=== PATIENT | male | born 1955 | race Caucasian/White ===

== ENCOUNTER → 2017-11-06 | Outpatient (CLI) | payer BC ==
--- NOTE | 2017-11-07 06:28 | PAP/PSG TECHNICIAN REPORT ---
[facility] Stroke Program Coordinator Polysomnogram Report Study name: None Report date: 11/07/2017 Study date: 11/06/2017 Referring Physician: DEJA Burns Name: SANTOS GREENE Interpreting Physician: Ramy Newell M.D. Date of : 1955 Stroke Program Coordinator: Augustin Valdivia RPSGT. Sex: Male Age: 62 StudyType: PSG Weight: 183 lbs Height: 62 years, Height 5' 11" BMI: 25.52 Medications: DULERA, IMITREX, PROAIR HFA, SINGULARI 10 MG, NASONEX 50 MCG/ACT, BERTRAND 180 MG, MELOXICAM 15 MG, ILTRAM 50 MG, ATIVAN 1 MG, ASPIRIN 81 MG Patient History PATIENT HAS HISTORY OF EXCESSIVE DAYTIME SLEEPINESS, FATIGUE, LOW ENERGY AND SNORING. ALSO HAS HISTORY OF DIFFICULTY MAINTAINING SLEEP. HE RECENTLY HAD A HOME STUDY DONE BUT WAS INCONCLUSIVE. HE IS HERE TODAY FOR AN EVALUATION FOR KEY. ESS = 8 RM 8 Parameters Monitored NPSG: E1-M2, E2-M1, Fp1-M2, Fp2-M1, F3-M2, F4-M2, F4-M1, C3-M2, C4-M2, C4-M1, O1-M2, O2-M2, O2-M1, T3-M2, T4-M1, P3-M2, P4-M1, CHIN1, CHIN2, HR, EKG, Legs, PFLOW, SNOR, FLOW, CFLOW, Tidal Volume, THOR, ABDO, SpO2, PLTH, CPRESS, ETCO2 Wave, ETCO2, pH Sleep Architecture Sleep Stages Time at Lights Off 9:53:06 PM STAGES Time (min.) TST (%) Time at Lights On 5:25:06 AM Wake 72.0 -- Total Recording Time (TRT) 452.50 min. N1 22.5 6 Total Sleep Period (TSP) 418.0 min. N2 225.5 59 Total Sleep Time (TST) 380.0min. N3 58.5 15 Awake Time 72.0 min. REM 73.5 19 Wake after Sleep Onset 38.0 min. Sleep Efficiency (SE) 84 % Sleep Onset Latency (SHANIQUA) 34.0 min. Number of Stage 1 Shifts None Awakenings 26 Stage Changes 111 Number of REM periods 3 REM 73.5 19 REM Latency 111.0 min. NREM 306.5 81 Body Position Analysis Supine Right Left Side Prone Vertical Total Sleep Time (min.) 60.6 184.6 173.4 357.97 0.0 0.0 Total Sleep Time (%) 6% 49% 46% 94 0% N/A% Total Sleep Time REM (min.) 0.0 27.5 46.0 None 0.0 0.0 Total Sleep Time NREM (min.) 22.0 157.1 127.4 None 0.0 0.0 Intermittent Wake (min.) 38.6 14.7 18.7 None 0.0 0.0 Total Sleep Period (%) 7% None None None None None Arousals Myoclonus (PLM) * Events Count Index Events Count Index Spontaneous 37 6 Events Awake (PLMW) 160 133.3 Respiratory 6 0.9 Events Asleep w/ Arousal (PLMA) 20 3.2 PLM 18 3 Events Asleep w/o Arousal (PLMS) 133 21.0 Snoring 5 1 Total Asleep 153 24.2 Total 66 10 Total 313 42 Respiratory Analysis * CA OA MA CH H RERA Total Count 0 0 0 0 3 8 3 Index 0.0 0.0 0.0 0 0.5 1 1.7 Mean Duration 0.0 0.0 0.0 0.00 20.2 17.2 18.0 Longest Duration 0.0 0.0 0.0 0.00 0.0 20.2 23.7 Respiratory Event Summary Total Supine ~Supine Right Left Prone REM NREM Apneas Count 0 0 0 0 0 N/A 0 0 Index 0.0 0 0 0.0 0.0 N/A 0 0 Hypopneas (4% Desat) Count 3 1 2 0 2 N/A 1 2 Index 0.5 2.7 0 0.0 0.7 N/A 0.8 0.4 Apneas & All Hypopneas Count 3 1 2 0 2 N/A 1 2 Index 0.5 3 0 0 1 N/A 0.8 0.4 Respiratory Events (Cafe Aide+All Hyp+RERA) Count 3 3 8 1 7 N/A 1 2 Index 1.7 8 1 0.3 2.4 N/A 1.6 1.8 Respiratory Related Arousal Count 6 3 6 1 5 N/A 1 5 Index 0.9 0 1 0 2 N/A 1 1 Snoring Analysis Supine Right Left Prone REM NREM Total Snore duration 4.4 min Snores count 4 21 128 N/A 59 94 153 Snore mean duration 1.7 Sec Snores index 11 7 44 N/A 48.2 18.4 24.2 TST with snoring (%) 1.1% Desaturation Event Summary: Minimum %SpO2 Event Count Mean/Min/Max Duration(sec.) Desaturation Index % Time In Bed > 90 5 36.7 / 5.0 / 60.0 0.7 100.0 86 - 90 0 N/A 0.0 0.0 81 - 85 0 N/A 0.0 0.0 76 - 80 0 N/A 0.0 0.0 71 - 75 0 N/A 0.0 0.0 66 - 70 0 N/A 0.0 0.0 61 - 65 0 N/A 0.0 0.0 56 - 60 0 N/A 0.0 0.0 51 - 55 0 N/A 0.0 0.0 < 50 0 N/A 0.0 0.0 Total REM NREM Awake <50% 0.0 min. 0.0 min. 0.0 min. 0.0 min. 51 - 60% 0.0 min. 0.0 min. 0.0 min. 0.0 min. 61 - 70% 0.0 min. 0.0 min. 0.0 min. 0.0 min. 71 - 80% 0.0 min. 0.0 min. 0.0 min. 0.0 min. 81 - 90% 0.2 min. 0.0 min. 0.1 min. 0.0 min. 91 - 100% 448.3 min. 73.4 min. 306.1 min. 68.8 min. Average 94 94 94 94 Minimum SpO2 90 91 90 90 Desaturation Event Index 0.7 0.8 0.4 1.7 # Desat. Events below 89% N/A N/A N/A N/A Time(%) with Saturation below 89% 0.0 0.0 0.0 0.0 Time(min.) with Saturation below 89% 0.0 0.0 0.0 0.0 Time (mins) REM (mins) NREM (mins) % of TST SpO2 Below 90% N/A N/A NN/A 0.0 SpO2 Below 88% 0 0 0 0 Heart Rate Analysis Min (bpm) Max (bpm) Average (bpm) Awake 57 92 71 NREM 55 92 65 REM 57 79 64 Overall 55 92 65 Supplemental O2 Values Minimum O2 level: None Value Start Time End Time Stroke Program Coordinator Comments Mr. Greene slept in the right, left and supine positions. No cardiac arrhythmia noted. Leg movements noted. No bruxism noted. Snoring was noted and scored as a 2 on a scale of 1 through 5. (0=no snoring, 5=snoring loud enough to be heard through a closed door or down the spring way) Mr. Greene awoke to use the restroom 0 times during the night. Mr. Greene stated I did not sleep as well as I do when I am in my own bed. The final report will be interpreted and signed by a sleep physician. The completed physician report will then be placed in the patient medical record. Therapy (cm H2O) 0 TIB (min.) 452.0 TST (min.) 380.0 Sleep Onset (min.) 34.0 REM Onset From Sleep (min.) 111.0 Sleep Efficiency % 84 Wakefulness (%) 16 Wakefulness (min.) 72.0 NREM 1 (%) 6 NREM 1 (min.) 22.5 NREM 2 (%) 59 NREM 2 (min.) 225.5 NREM 3 (%) 15 NREM 3 (min.) 58.5 REM (%) 19 REM (min.) 73.5 # Arousals 66 Arousal Index 10 # Snore 153 Snore Index 24.2 AHI 0.5 AHI Supine 3 AHI Non-Supine 0 NREM AHI 0.4 REM AHI 0.8 RDI 1.7 # Obstructive Apnea 0 # Central Apnea 0 # Mixed Apnea 0 # Hypopneas 3 RERAs 8 Total Respiratory Events 12 Time Below SpO2 89% (min.) 0.0 Mean NREM SpO2 (%) 94 Mean REM SpO2 (%) 94 Mean Sleep SpO2 (%) 94 Min NREM SpO2 (%) 90 Min REM SpO2 (%) 91 Position Supine (min.) 60.6 Position Non-supine (min.) 358.0 LM Index Sleep 24.2 LM Index NREM 25.6 LM Index REM 18.0 Mean Heart Rate (bpm) 65 Min Heart Rate (bpm) 55
--- NOTE | 2017-11-08 09:55 | POLYSOMNOGRAPH REPORT ---
CLINICAL DATA: A 62-year-old male with BMI of 25.5, referred by DEJA Lopez with excessive daytime sleepiness, fatigue, low energy, and snoring. He has difficulty maintaining sleep. He had an inconclusive home sleep apnea test. His Peterson sleepiness score was 8/24. SLEEP ARCHITECTURE: Total sleep period was 418 minutes. Total sleep time was 380 minutes divided between 306.5 minutes of non-REM sleep and 73.5 minutes of REM sleep. Sleep onset latency was slightly delayed at 34 minutes. REM latency was 111 minutes. Sleep efficiency was 84%. Wake after sleep onset was 38 minutes. Sleep consisted of stage N1 6%, stage N2 59%, stage N3 15%, and REM 19%. AROUSAL DATA: Sixty-six arousals were recorded for an index of 10 per hour. PLM DATA: Mildly elevated limb movements during sleep were noted. There were 153 limb movements during sleep noted for an index of 24.2 per hour with arousal index of 3.2 per hour. RESPIRATORY DATA: There was no evidence of clinically significant sleep apnea/hypopnea seen. The AHI was 0.5. The RDI was 1.7. There were 3 hypopneic episodes with a mean duration of 20 seconds. There were 8 RERAs, the longest of which was 20 seconds. OXIMETRY DATA: No hypoxemia was seen. Oxygen robert was 90%. Mean saturation was 94%. EKG: Heart rates ranged from 55-92 beats per minute. No arrhythmias noted. INSTALLATION TECHNICIAN'S COMMENTS: The patient slept in the right, left, and supine position. Snoring was mild, rated 2 on a scale of 1-5. IMPRESSION: No evidence of clinically significant sleep apnea/hypopnea or nocturnal hypoxemia. The AHI was 0.5. The RDI was 1.7. RECOMMENDATIONS: The patient should continue to practice good sleep hygiene. [facility]
== END | disposition home or self-care (01) ==
LOC: C.NEUR 21:00
PROVIDERS: ATTEND Nurse Practitioner Family
DX: R06.83 Snoring (principal); F51.04 Psychophysiologic insomnia; G47.10 Hypersomnia, unspecified; J45.30 Mild persistent asthma, uncomplicated; K21.9 Gastro-esophageal reflux disease without esophagitis